=== PATIENT | female | born 1950 | race Caucasian/White ===

== ENCOUNTER → 2018-06-14 | Day surgery (SDC) | payer MEDICARE, OTHER ==
[~2018-06-14] MED LIST: ASPIR 8181 MG PO; ATORVASTATIN CA80 MG PO; CARVEDILOL12.5 MG PO; CENTRUM SILVER1 EAC4 PO; CITRACAL + BON1 EACH PO; CYMBALTA60 MG PO; ISOSORBIDE MONO60 M1 PO; MICARDIS HCT 41 EACH PO; PERCOCET PO; PROTONIX40 M1 PO; SYNTHROID112 MC1 PO; XANAX 0.25 MG0.25 MG PO
[2018-06-14 11:45] LABS: HEMATOCRIT 36.6 % (37.0-47.0); HEMOGLOBIN 12.4 gm/dL (12.0-15.0); MCH 31.8 pg (26.0-34.0); MCV 93.6 fL (80.0-100.0); MPV 7.6 fl. (7.2-11.1); RBC 3.91 mil/uL (4.20-5.00); RDW-CV 12.3 % (10.5-14.5); WBC 8.9 thou/uL (4.0-11.0)
[2018-06-14 11:57] LABS: CALCIUM 8.6 mg/dL (8.5-10.1); CREATININE 0.6 mg/dL (0.6-1.3); POTASSIUM 3.1 mmol/L (3.5-5.1)
[2018-06-14 12:01] LABS: ALBUMIN 3.1 g/dL (3.4-5.0); TOTAL BILIRUBIN 0.7 mg/dL (<0.1-1.0); TOTAL PROTEIN 6.6 g/dL (6.4-8.2)
--- NOTE | 2018-06-14 17:55 | EKG ---
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1950 Requested By: Roman Heard Order Number: [id number] Srinath MD: Emir Najera Measurements Intervals [place] Rate: 82 P: 45 NM: 177 QRS: -13 QRSD: 103 T: -12 QT: 359 QTc: 420 Interpretive Statements Sinus rhythm Low voltage, precordial leads Borderline T abnormalities, inferior leads Baseline wander in lead(s) II,III,aVF No previous ECG available for comparison Electronically Signed On 06-14-2018 17:55:38 CDT by Emir Najera [email or web address] <ELECTRONICALLY SIGNED> By: Emir Najera MD, [facility] 06/14/18 1755 1223 1223 Emir Najera MD, [facility] /EPI
--- NOTE | 2018-06-28 08:37 | OP ---
[address] [address] OPERATIVE REPORT Name: FABIOLA MONTELONGO Room: [facility]#: [id number] Admission: 06/14/18 Attend Phys: Roman Heard II Discharge: Date of : 54 Report #: [id number] THIS REPORT FOR: //name// CC: Santos Heard DATE OF SERVICE: 06/14/2018 PREOPERATIVE DIAGNOSIS: Left patella fracture with comminution and displacement. POSTOPERATIVE DIAGNOSIS: 1. Left patella fracture with comminution and displacement. 2. Tear of quadriceps muscle in the insertion of patella. PROCEDURE: 1. Open reduction and internal fixation of the left patellar fracture. 2. Repair of quadriceps muscle to patella. SURGEON: Roman Heard II, DO. DIRECTOR OF ACCOUNTS PAYABLE: MIKAL Dela Cruz. ANESTHESIA: Per operative record. ESTIMATED BLOOD LOSS: Minimal. ANTIBIOTICS: Per operative record. DRAINS: None. COMPLICATIONS: None. CONDITION: The patient stable to the recovery room. DESCRIPTION OF PROCEDURE: The patient was taken to the operative suite and placed supine on the operating table and given appropriate anesthesia. The patient's affected lower extremity was sterilely prepped and draped with a well-padded tourniquet. Surgery began by a longitudinal incision over the left knee in a midline fashion. This was carried through the subcutaneous tissues. The fractured patella was palpated along the midportion of the patella. There was also noted to be a quadriceps tear noted at the insertion of the patella medially due to the fracture. Irrigation was performed to remove excess hematoma from the knee joint. The patella was then visualized with C-arm in both AP and lateral directions and open reduction was performed in the [address] [address] OPERATIVE REPORT Name: FABIOLA MONTELONGO Room: [facility]#: [id number] Admission: 06/14/18 Attend Phys: Roman Heard II Discharge: Date of : 54 Report #: [id number] fashion. There was found to be a small step-off anteriorly due to comminution of the fracture. Holding this with reduction forceps, two guidewires were then placed through the patella in a superior to inferior direction. These were then measured and the appropriate length 4.0 cancellous screw was then placed through this region. Utilizing a suture passer, a #5 FiberWire was then placed in a qlqyiy-ca-wbvtx fashion through both cannulated screws to take an X configuration over the anterior aspect of the patella and the tension band was performed utilizing the FiberWire stitch in appropriate fashion. Final images were once again taken with the C-arm in both AP and lateral directions and showed an excellent reduction in near anatomic fashion. Attention was then turned to the quadriceps muscle, which had torn from the anterior and medial aspect of the patella. This was freshened along its medial margin down to fresh tissue and then repaired utilizing a #1 Vicryl in a eevsmt-bd-rukbm fashion. The knee was then gently ranged in motion to make sure that the patella construct was intact and no further tearing of the quadriceps, which appeared intact as well. Final irrigation of the knee was then performed. The subcuticular layer was then closed utilizing #1 Vicryl in zrwpfb-se-brpon fashion and a 2-0 Vicryl in subcuticular fashion. It was then oversewed using a Monocryl stitch. Dermabond and sterile dressing was applied. The patient transferred to recovery room in stable condition. Counts were correct throughout the procedure. <ELECTRONICALLY SIGNED> By: Roman Heard II, DO 06/28/18 0837 0727 [id number] Heard II DO /nt
== END | disposition home or self-care (01) ==
LOC: M.SUR 11:12
PROVIDERS: Orthopaedic Surgery
DX: S82.042A Displaced comminuted fracture of left patella, initial encounter for closed fracture (principal); S76.112A Strain of left quadriceps muscle, fascia and tendon, initial encounter; M25.562 Pain in left knee; I10 Essential (primary) hypertension; E07.9 Disorder of thyroid, unspecified; M19.90 Unspecified osteoarthritis, unspecified site; E78.5 Hyperlipidemia, unspecified; G47.33 Obstructive sleep apnea (adult) (pediatric); Z86.79 Personal history of other diseases of the circulatory system; Z98.890 Other specified postprocedural states; Z82.49 Family history of ischemic heart disease and other diseases of the circulatory system; Z79.82 Long term (current) use of aspirin; Z79.899 Other long term (current) drug therapy; Z79.891 Long term (current) use of opiate analgesic; X58.XXXA Exposure to other specified factors, initial encounter; Y93.89 Activity, other specified; Y92.89 Other specified places as the place of occurrence of the external cause; Y99.8 Other external cause status